=== PATIENT | female | born 1990 | race Caucasian/White ===

== ENCOUNTER 2022-11-22 16:11 | Emergency (ER) | payer SELFPAY ==
[~2022-11-22] VITALS: Ht 165.1 cm; Wt 75.0 kg
[2022-11-22 16:16] VITALS: BP 113/86
[2022-11-22] MEDS ORDERED: LIDOCAINE HCL/EPINEPHRINE 1%-EPI 1:100,000 50 ML VIAL INFIL ONE (18:30)
[2022-11-22] MEDS ORDERED: BACITRACIN ZINC OINT UDPKT TOP ONE (18:30)
[2022-11-22] MEDS ORDERED: TETANUS, DIPHTHERIA, PERTUSSIS VAC/PF 0.5ML (>10YR OLD) IM ONE (18:30)
[2022-11-22] MEDS ORDERED: LIDOCAINE HCL/EPINEPHRINE 1%-EPI 1:100,000 10 ML VIAL IJ NR (18:30)
== END 2022-11-22 19:30 | disposition home or self-care (01) ==
LOC: ER 16:11
DX: S01.81XA Laceration without foreign body of other part of head, initial encounter (principal); E03.9 Hypothyroidism, unspecified; Z87.891 Personal history of nicotine dependence; W22.09XA Striking against other stationary object, initial encounter; Y93.89 Activity, other specified; Y92.143 Cell of prison as the place of occurrence of the external cause; Y99.8 Other external cause status
CPT/HCPCS: 12011; 90471; 90715; 99283; J3490

== ENCOUNTER 2023-03-18 13:27 | Emergency (ER) | payer MEDICAID ==
[~2023-03-18] VITALS: Ht 160 cm; Wt 78.0 kg
[2023-03-18 13:29] VITALS: O2SAT 100
[2023-03-18] MEDS ORDERED: ONDANSETRON 4MG ODT PO ONE (14:45)
[2023-03-18] MEDS ORDERED: ACETAMINOPHEN 325MG TABLET PO ONE (15:00)
[2023-03-18 17:17] VITALS: BP 107/72; PULSE 103; RESP 18; TEMP 98.7
== END 2023-03-18 17:20 | disposition home or self-care (01) ==
LOC: ER 13:27
DX: S01.91XA Laceration without foreign body of unspecified part of head, initial encounter (principal); R51.9 Headache, unspecified; Z86.39 Personal history of other endocrine, nutritional and metabolic disease; W01.0XXA Fall on same level from slipping, tripping and stumbling without subsequent striking against object, initial encounter; Y93.01 Activity, walking, marching and hiking; Y92.89 Other specified places as the place of occurrence of the external cause; Y99.8 Other external cause status
CPT/HCPCS: 99284; 70450; 81025; Q0162